=== PATIENT | female | born 1980 | race Caucasian/White ===

== ENCOUNTER 2017-01-11 12:03 | Outpatient (CLI) | payer OTHER ==
--- NOTE | 2017-01-11 22:13 | MRI Report ---
EXAM: MRI LUMBAR SPINE WITHOUT CONTRAST EXAM DATE: 01/11/2017 01:21 PM. CLINICAL HISTORY: LOW BACK PAIN. COMPARISON: None. TECHNIQUE: Multiplanar, multisequence T1-weighted and fluid-sensitive sequences of the lumbar spine f rom T12 to S3 without contrast. Other: None. FINDINGS: Spinal Cord: The conus terminates at L1-L2. No signal abnormality in the visualized spinal cord. Alignment: Normal. No scoliosis or spondylolisthesis. Bone Marrow: Five [id number] lumbar vertebral bodies are assumed. No gross fractures or bone les ions. No bone marrow edema. Disk Levels/Facets: T12-L1: Unremarkable. L1-L2: Unremarkable. L2-L3: Unremarkable. L3-L4: Unremarkable. L4-L5: There is no disk protrusion. There is mild bilateral facet hypertrophy. There is no significan t central canal or neural foraminal narrowing. L5-S1: There is disk desiccation and a focus of high T2 signal in the posterior annulus. There is a m ild disk bulge. There is mild facet hypertrophy. No significant central canal or neural foraminal jossy rowing. Comment: The following findings are so common in adults without low back pain that while we report th eir presence, they must be interpreted with caution and in the context of the clinical situation. (Re janine Goodmank et al, Spine 2001) Prevalence of findings in patients without low back pain: Disk degeneration (any evidence): 92% Disk desiccation/T2 signal loss: 83% Disk height loss: 56% Disk bulge: 64% Disk protrusion: 32% Annular tear/high intensity zone: 38% Musculature: Normal. No edema or fatty atrophy. Other: The visualized pelvic cavity is unremarkable. IMPRESSION: 1. No significant central canal or neural foraminal narrowing. 2. L5-S1 mild disk bulge and mild facet hypertrophy without central canal and neural foraminal narrow ing. Mild L4-L5 facet hypertrophy. [facility] Referring Provider Line: [phone] SITE ID: [id number]
== END 2017-01-11 12:04 | disposition home or self-care (01) ==
LOC: DI 12:03
PROVIDERS: ATTEND Nurse Practitioner Family
DX: M89.38 Hypertrophy of bone, other site (principal)
CPT/HCPCS: 72148